=== PATIENT | male | born 1945 | race Caucasian/White ===

== ENCOUNTER 2021-10-03 06:47 | Day surgery (SDC) | payer MEDICARE ==
[2021-10-03] MEDS ORDERED: Sodium Chloride 0.9% 1,000 ML IV SCH (07:15)
[2021-10-03] MEDS ORDERED: fentaNYL 100 MCG/2 ML SDV ONE (07:26)
[2021-10-03] MEDS ORDERED: Propofol 200 MG/20 ML SDV ONE (07:26)
[2021-10-03] MEDS ORDERED: Midazolam 1 MG/ML 2 ML SDV ONE (07:26)
== END 2021-10-03 11:21 | disposition home or self-care (01) ==
LOC: JP.SDS 06:47
PROVIDERS: ATTEND Surgery
DX: Z12.11 Encounter for screening for malignant neoplasm of colon (principal); D12.3 Benign neoplasm of transverse colon; D12.8 Benign neoplasm of rectum; E66.9 Obesity, unspecified
CPT/HCPCS: J2250; J2704; J3010; J7030

== ENCOUNTER 2022-04-10 07:08 | Day surgery (SDC) | payer MEDICARE ==
[2022-04-10] MEDS ORDERED: Sodium Chloride 0.9% 1,000 ML IV SCH (07:45)
[2022-04-10] MEDS ORDERED: Propofol 200 MG/20 ML SDV ONE (08:00)
[2022-04-10] MEDS ORDERED: fentaNYL 100 MCG/2 ML SDV ONE (08:00)
== END 2022-04-10 10:14 | disposition home or self-care (01) ==
LOC: JP.SDS 07:08
PROVIDERS: ATTEND Surgery
DX: Z12.11 Encounter for screening for malignant neoplasm of colon (principal); D12.0 Benign neoplasm of cecum; I10 Essential (primary) hypertension; E78.5 Hyperlipidemia, unspecified; Z79.899 Other long term (current) drug therapy; Z79.83 Long term (current) use of bisphosphonates; Z79.810 Long term (current) use of selective estrogen receptor modulators (SERMs); Z86.010 Personal history of colon polyps
CPT/HCPCS: 45380; 45385; J2704; J3010; J7030; 88305